=== PATIENT | male | born 1995 | race Caucasian/White ===

== ENCOUNTER 2021-09-30 01:15 | Emergency (ER) | payer OTHER ==
[~2021-09-30] VITALS: Ht 172.7 cm; Wt 56.3 kg
[2021-09-30] MEDS ORDERED: SODIUM CHLORIDE 0.9% 1,000 ML IV ONE (02:00)
[2021-09-30] MEDS ORDERED: LORAZEPAM 1MG TABLET PO ONE (02:00)
[2021-09-30] MEDS ORDERED: KETOROLAC 15MG/ML VIAL IV ONE (02:15)
[2021-09-30] MEDS ORDERED: CEFTRIAXONE 1 G PREMIX 50 ML IV ONE (02:15)
[2021-09-30] MEDS ORDERED: CEFTRIAXONE 1 G PREMIX 50 ML IV SCH (03:45)
[2021-09-30] MEDS ORDERED: KETOROLAC 15MG/ML VIAL IV SCH (03:45)
[2021-09-30] MEDS ORDERED: LORAZEPAM 1MG TABLET PO SCH (03:45)
[2021-09-30] MEDS ORDERED: CEPH500T MT (03:47)
[2021-09-30] MEDS ORDERED: IBUP-2029 MT (03:47)
[2021-09-30 04:11] VITALS: BP 121/83
== END 2021-09-30 04:50 | disposition home or self-care (01) ==
LOC: ER 01:43
DX: S40.861A Insect bite (nonvenomous) of right upper arm, initial encounter (principal); L03.113 Cellulitis of right upper limb; R06.02 Shortness of breath; R00.0 Tachycardia, unspecified; F41.9 Anxiety disorder, unspecified; Z20.822 Contact with and (suspected) exposure to COVID-19; W57.XXXA Bitten or stung by nonvenomous insect and other nonvenomous arthropods, initial encounter; Y93.89 Activity, other specified; Y92.89 Other specified places as the place of occurrence of the external cause
CPT/HCPCS: 71045; 87426; 96361; 96365; 96375; 99284; J0696; J1885; J7030